=== PATIENT | female | born 1980 | race American Indian/Alaskan Native ===

== ENCOUNTER 2017-09-21 10:15 | Emergency (ER) | payer MEDICARE, MEDICAID ==
[2017-09-21 10:33] VITALS: BP 138/94
--- NOTE | 2017-09-21 10:56 | EDM.PDOC ---
ED HPI GENERAL MEDICAL PROBLEM - General Chief Complaint: Lower Extremity Injury/Pain Stated Complaint: RIGHT FOOT PAIN Time Seen by Provider: 09/21/17 10:51 Source of Information: Reports: Patient, Old Records, RN Notes Reviewed History Limitations: Reports: No Limitations - History of Present Illness INITIAL COMMENTS - FREE TEXT/NARRATIVE: 36-year-old female presents to the emergency department today with complaint of right foot pain, she accidentally injured herself last night when she twisted her ankle she was able to ambulate however is still having pain has tried ibuprofen with minimal relief, no breaks in the skin Right Feet Pain Score (Numeric/FACES): 4 - Related Data Allergies Allergy/AdvReac Type Severity Reaction Status Date / Time morphine Allergy Unknown Itching Verified 01/08/15 19:01 Home Meds: Home Meds Simvastatin [Simvastatin] 20 mg PO BEDTIME 02/26/14 [History] Citalopram [Citalopram HBr] 40 mg PO DAILY 08/01/14 [History] Past Medical History HEENT History: Reports: Impaired 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: - Infectious Disease History Infectious Disease History: Reports: Chicken Pox - Past Surgical History Other Musculoskeletal Surgeries/Procedures:: r foot surgery Social & Family History - Tobacco Use Smoking Status *Q: Light Tobacco Smoker Years of Tobacco use: 23 Packs/Tins Daily: 0.5 Used Tobacco, but Quit: No Second Hand Smoke Exposure: No - Caffeine Use Caffeine Use: Reports: Coffee - Alcohol Use Days Per Week of Alcohol Use: 0 - Recreational Drug Use Recreational Drug Use: No Review of Systems - Review of Systems Review Of Systems: See Below Constitutional: Reports: No Symptoms Musculoskeletal: Reports: Foot Pain, Joint Pain (Right ankle) Skin: Reports: No Symptoms ED EXAM, GENERAL - Physical Exam Exam: See Below Free Text/Narrative:: Examination of the right foot I don't appreciate any erythema there is no edema noted she is tender to the touch with a drawer test tilt test elicits no pain pedal pulse is +2 full range of motion of all digits sensation is intact there is no tenderness at the knee no tenderness at the hip Exam Limited By: No Limitations General Appearance: Alert, WD/WN, No Apparent Distress Course - Vital Signs Last Recorded V/S: Last Vital Signs Temp 98.1 F 09/21/17 10:36 Pulse 101 H 09/21/17 10:36 Resp 16 09/21/17 10:36 BP 138/94 H 09/21/17 10:36 Pulse Ox 95 09/21/17 10:36 - Orders/Labs/Meds Meds: Medications Discontinued Medications Generic Name Dose Route Start Last Admin Trade Name Stephenie PRN Reason Stop Dose Admin Acetaminophen 650 mg 09/21/17 10:54 09/21/17 11:04 Tylenol PO 09/21/17 10:55 650 mg NOW ONE Administration Departure - Departure Time of Disposition: 11:23 Disposition: Home, Self-Care 01 Condition: Good Clinical Impression: Right ankle sprain Qualifiers: Encounter type: initial encounter Involved ligament of ankle: unspecified ligament Qualified Code(s): S93.401A - Sprain of unspecified ligament of right ankle, initial encounter - Discharge Information Referrals: Ata Tilley MD [Primary Care Provider] - Forms: ED Department Discharge Additional Instructions: Continue to use your air gel splint as needed, use Tylenol or Motrin as needed for pain control, Please followup with your primary care provider in 5-7 days if not better, please call return to the emergency department with worsening of symptoms. - Assessment/Plan Plan: Assessment Acuity = acute Site and laterality = right ankle sprain Etiology = secondary to twisting injury Manifestations = none Location of injury = Home Lab values = x-ray shows no acute fracture Plan She was provided Tylenol in the emergency department, placed in an air gel splint lab follow-up with her primary care in 5-7 days if no improvement This note was dictated using [employer] voice recognition software please call with any questions on syntax or markell.
[2017-09-21] MEDS: Acetaminophen 325 MG Tab PO ONE (11:04)
--- NOTE | 2017-09-21 11:17 | CR ---
Ankle Min 3V Rt HISTORY: pain twist injury FINDINGS: No acute fracture or dislocation is identified. Bony architecture is preserved. There are m ild degenerative changes of the ankle mortise. Old plate and screw arthrodesis changes hindfoot are n oted. IMPRESSION: Degenerative changes. No acute fracture or dislocation is identified. Old arthrodesis reny nges right hindfoot are noted.
== END 2017-09-21 11:36 | disposition home or self-care (01) ==
LOC: JP.ED 10:15
DX: S93.401A Sprain of unspecified ligament of right ankle, initial encounter (principal); F17.210 Nicotine dependence, cigarettes, uncomplicated; Z88.5 Allergy status to narcotic agent; Z79.899 Other long term (current) drug therapy; X50.1XXA Overexertion from prolonged static or awkward postures, initial encounter; Y92.009 Unspecified place in unspecified non-institutional (private) residence as the place of occurrence of the external cause
CPT/HCPCS: 73610-26-RT; 73610-RT; 99284; A9270-GY

== ENCOUNTER 2017-10-24 13:34 | Emergency (ER) | payer MEDICARE, MEDICAID ==
[2017-10-24 15:13] VITALS: BP 123/91
--- NOTE | 2017-10-24 16:19 | EDM.PDOC ---
ED HPI GENERAL MEDICAL PROBLEM - General Chief Complaint: Flank Pain Stated Complaint: RT SIDE PAIN Time Seen by Provider: 10/24/17 16:14 Source of Information: Reports: Patient, RN Notes Reviewed History Limitations: Reports: No Limitations - History of Present Illness INITIAL COMMENTS - FREE TEXT/NARRATIVE: 37-year-old female presents emergency department day complaint of right flank pain, she states is been ongoing for about 12 hours no dysuria and no frequency or urgency she states is also positional she turns one direction and this will exacerbate the pain no fever - Related Data Allergies Allergy/AdvReac Type Severity Reaction Status Date / Time morphine Allergy Unknown Itching Verified 10/24/17 15:17 Home Meds: Home Meds Simvastatin [Simvastatin] 20 mg PO BEDTIME 02/26/14 [History] Citalopram [Citalopram HBr] 40 mg PO DAILY 08/01/14 [History] Acetaminophen [Tylenol Arthritis] 650 mg PO ASDIRECTED 10/24/17 [History] Oxybutynin 5 mg PO DAILY 10/24/17 [History] Past Medical History HEENT History: Reports: 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: - Infectious Disease History Infectious Disease History: Reports: Chicken Pox - Past Surgical History Other Musculoskeletal Surgeries/Procedures:: r foot surgery Social & Family History - Tobacco Use Smoking Status *Q: Light Tobacco Smoker Years of Tobacco use: 23 Packs/Tins Daily: 0.5 Used Tobacco, but Quit: No Second Hand Smoke Exposure: No - Caffeine Use Caffeine Use: Reports: Coffee - Alcohol Use Days Per Week of Alcohol Use: 0 - Recreational Drug Use Recreational Drug Use: No ED ROS GENERAL - Review of Systems Review Of Systems: See Below Constitutional: Denies: Fever, Chills HEENT: Reports: No Symptoms Respiratory: Reports: No Symptoms Cardiovascular: Reports: No Symptoms GI/Abdominal: Reports: No Symptoms : Reports: Flank Pain. Denies: Dysuria, Frequency Musculoskeletal: Reports: No Symptoms Skin: Reports: No Symptoms ED EXAM, GI/ABD - Physical Exam Exam: See Below Exam Limited By: No Limitations General Appearance: Alert, WD/WN, No Apparent Distress Respiratory/Chest: No Respiratory Distress, Lungs Clear, Normal Breath Sounds, No Accessory Muscle Use Cardiovascular: Regular Rate, Rhythm, No Murmur GI/Abdominal Exam: Soft, Non-Tender Back Exam: Normal Inspection, Full Range of Motion, CVA Tenderness (R). No: CVA Tenderness (L) Course - Vital Signs Last Recorded V/S: Last Vital Signs Temp 97.5 F 10/24/17 15:21 Pulse 78 10/24/17 15:21 Resp 15 10/24/17 15:21 BP 123/91 H 10/24/17 15:21 Pulse Ox 97 10/24/17 15:21 - Orders/Labs/Meds Orders: Active Orders 24 hr Category Date Time Status CULTURE URINE [RM] Urgent Lab 10/24/17 17:14 Received Labs: Laboratory Tests 10/24/17 10/24/17 10/24/17 Range/Units 15:59 16:32 16:32 WBC 9.1 (4.5-11.0) K/uL RBC 5.13 (3.30-5.50) M/uL Hgb 14.8 (12.0-15.0) g/dL Hct 44.5 (36.0-48.0) % MCV 87 (80-98) fL MCH 29 (27-31) pg MCHC 33 (32-36) % Plt Count 294 (150-400) K/uL Neut % (Auto) 63 (36-66) % Lymph % (Auto) 28 (24-44) % Dauphin % (Auto) 8 H (2-6) % Eos % (Auto) 2 (2-4) % Baso % (Auto) 0 (0-1) % Sodium 144 (140-148) mmol/L Potassium 3.9 (3.6-5.2) mmol/L Chloride 106 (100-108) mmol/L Carbon Dioxide 30 (21-32) mmol/L Anion Gap 8.5 (5.0-14.0) mmol/L BUN 4 L (7-18) mg/dL Creatinine 0.9 (0.6-1.0) mg/dL Est Cr Clr Drug Dosing 79.34 mL/min Estimated GFR (MDRD) > 60 (>60) Glucose 94 (74-106) mg/dL Lactic Acid (0.4-2.0) mmol/L Calcium 8.7 (8.5-10.1) mg/dL Total Bilirubin 0.4 (0.2-1.0) mg/dL AST 25 (15-37) U/L ALT 39 (12-78) U/L Alkaline Phosphatase 132 H (46-116) U/L C-Reactive Protein 1.85 H (0.0-0.3) mg/dL Total Protein 7.7 (6.4-8.2) g/dL Albumin 3.4 (3.4-5.0) g/dL Globulin 4.3 H (2.3-3.5) g/dL Albumin/Globulin Ratio 0.8 L (1.2-2.2) Urine Color Yellow Urine Appearance Slightly cloudy Urine pH 5.0 (4.5-8.0) Ur Specific Dennison 1.015 (1.008-1.030) Urine Protein Negative (NEGATIVE) mg/dL Urine Glucose (UA) Normal (NEGATIVE) mg/dL Urine Ketones Negative (NEGATIVE) mg/dL Urine Occult Blood Negative (NEGATIVE) Urine Nitrite Negative (NEGATIVE) Urine Bilirubin Negative (NEGATIVE) Urine Urobilinogen Normal (NORMAL) mg/dL Ur Leukocyte Esterase Small (NEGATIVE) Urine RBC 0-5 (0-5) Urine WBC 5-10 H (0-5) Ur Epithelial Cells Moderate Amorphous Sediment Not seen Urine Bacteria Few Urine Mucus Few 18 Range/Units 16:32 WBC (4.5-11.0) K/uL RBC (3.30-5.50) M/uL Hgb (12.0-15.0) g/dL Hct (36.0-48.0) % MCV (80-98) fL MCH (27-31) pg MCHC (32-36) % Plt Count (150-400) K/uL Neut % (Auto) (36-66) % Lymph % (Auto) (24-44) % Dauphin % (Auto) (2-6) % Eos % (Auto) (2-4) % Baso % (Auto) (0-1) % Sodium (140-148) mmol/L Potassium (3.6-5.2) mmol/L Chloride (100-108) mmol/L Carbon Dioxide (21-32) mmol/L Anion Gap (5.0-14.0) mmol/L BUN (7-18) mg/dL Creatinine (0.6-1.0) mg/dL Est Cr Clr Drug Dosing mL/min Estimated GFR (MDRD) (>60) Glucose (74-106) mg/dL Lactic Acid 0.7 (0.4-2.0) mmol/L Calcium (8.5-10.1) mg/dL Total Bilirubin (0.2-1.0) mg/dL AST (15-37) U/L ALT (12-78) U/L Alkaline Phosphatase (46-116) U/L C-Reactive Protein (0.0-0.3) mg/dL Total Protein (6.4-8.2) g/dL Albumin (3.4-5.0) g/dL Globulin (2.3-3.5) g/dL Albumin/Globulin Ratio (1.2-2.2) Urine Color Urine Appearance Urine pH (4.5-8.0) Ur Specific Dennison (1.008-1.030) Urine Protein (NEGATIVE) mg/dL Urine Glucose (UA) (NEGATIVE) mg/dL Urine Ketones (NEGATIVE) mg/dL Urine Occult Blood (NEGATIVE) Urine Nitrite (NEGATIVE) Urine Bilirubin (NEGATIVE) Urine Urobilinogen (NORMAL) mg/dL Ur Leukocyte Esterase (NEGATIVE) Urine RBC (0-5) Urine WBC (0-5) Ur Epithelial Cells Amorphous Sediment Urine Bacteria Urine Mucus Meds: Medications Discontinued Medications Generic Name Dose Route Start Last Admin Trade Name Freq PRN Reason Stop Dose Admin Ketorolac Tromethamine 60 mg 10/24/17 17:09 10/24/17 17:26 Toradol IM 10/24/17 17:10 60 mg ONETIME ONE Administration Departure - Departure Time of Disposition: 17:44 Disposition: Home, Self-Care 01 Condition: Good Clinical Impression: Right flank pain - Discharge Information Referrals: Ata Tilley MD [Primary Care Provider] - Forms: ED Department Discharge Additional Instructions: Continue to use ibuprofen as needed for pain control, Please followup with your primary care provider in 3-5 days if not better, please call return to the emergency department with worsening of symptoms. - My Orders Last 24 Hours: My Active Orders 10/24/17 17:14 CULTURE URINE [RM] Urgent - Assessment/Plan Last 24 Hours: My Active Orders 10/24/17 17:14 CULTURE URINE [RM] Urgent Plan: Assessment Acuity = acute Site and laterality = right flank pain Etiology = probably muscle skeletal injury Manifestations = none Location of injury = Home Lab values = CBC unremarkable CMP unremarkable CRP slightly elevated 1.85 urinalysis shows 5-10 wbc's consists of pyuria cultures pending Plan She had good improvement with the Toradol injection she'll be discharged home with ibuprofen 600 mg by mouth every 6 hours when necessary follow-up with primary care 3-5 days if not better we will contact him if the culture does show infection This note was dictated using [email or web address] voice recognition software please call with any questions on syntax or markell.
[2017-10-24] MEDS ORDERED: Ketorolac 60 MG/2 ML SDV IM ONE (17:09)
== END 2017-10-24 17:54 | disposition home or self-care (01) ==
LOC: JP.ED 13:34
DX: R10.9 Unspecified abdominal pain (principal); F17.210 Nicotine dependence, cigarettes, uncomplicated; Z79.899 Other long term (current) drug therapy; Z88.5 Allergy status to narcotic agent
CPT/HCPCS: 36415; 80053; 81001; 83605; 85025; 86140; 87086; 96372; 99284; J1885; 99282